=== PATIENT | male | born 1970 ===

== ENCOUNTER 2017-01-21 13:06 | Emergency (ER) | payer OTHER ==
--- NOTE | 2017-01-21 13:40 | C.PDOC ---
History Of Present Illness 46 yo male w/PMH of HTN ( not on medication currently), come infor vealution of retrosternal pain, back pain and Left elbow apin gradually developed 2 days ago after sustained mechanical fall at home. Pt reports, " slept on wet floor at home, fell down backwards, hit my left elbow and lower back". Pt reports, pain is reproducible, localized and worse with movement. Otherwise, pt denies obvious deformity, head injury, LOC, syncope, headache, dizziness, neck pain, SOB, dysphea, diaphoresis, palpitation, abd. pain, V/D, UTI sx, saddle anesthesia, incontinence, weakness, sensory or vascular deficits to B/L LEs. Ambulate to Ed for evaluation, not in any apparent distress. Time Seen by Provider: 01/21/17 13:30 Chief Complaint (Nursing): Chest Pain Past Medical History Vital Signs: Last Vital Signs Temp 98 F 01/21/17 13:20 Pulse 59 L 01/21/17 14:28 Resp 18 01/21/17 14:28 BP 178/92 H 01/21/17 13:20 Pulse Ox 98 01/21/17 14:28 - Medical History PMH: HTN Family History: States: Unknown Family Hx - Social History Hx Alcohol Use: Yes (former daily alcohol abuse) Hx Substance Use: No - Immunization History Hx Tetanus Toxoid Vaccination: No Hx Influenza Vaccination: No Hx Pneumococcal Vaccination: No Physical Exam - Physical Exam Appears: Well, Non-toxic, No Acute Distress Skin: Normal Color, Warm, No Ecchymosis Head: Atraumatic, Normacephalic Eye(s): bilateral: PERRL Ear(s): Bilateral: Normal Nose: Normal, No Discharge Oral Mucosa: Moist, No Drooling Tongue: Normal Appearing Lips: Normal Appearing Throat: Normal Neck: Normal ROM, Trachea Midline, No Midline Cervical Tenderness, No Paracervical Tenderness, No Step Off Deformity, Supple Chest: Symmetrical, No Deformity, Tenderness (mild tenderness midsternal and Right anterior chest wall overlying 3-5 intercostal spaces. NO palpable deformity.), No Ecchymosis, No Subcutaneous Emphysema Cardiovascular: Rhythm Regular Respiratory: No Decreased Breath Sounds, No Accessory Muscle Use, No Stridor, No Wheezing Gastrointestinal/Abdominal: Soft, No Tenderness, No Distention, No Guarding Back: No CVA Tenderness, No Vertebral Tenderness, Paraspinal Tenderness (mild lumbar paraspinal tenderness.) Extremity: Normal ROM, Tenderness (mildtenderness left olecranon. NO ecchymoses , FAROM, no neurovascular deficits.), No Deformity, No Swelling Neurological/Psych: Oriented x3, Normal Speech, Normal Motor, Normal Sensation, Normal Reflexes ED Course And Treatment ECG: Interpreted By Me, Viewed By Me ECG Rhythm: Sinus Bradycardia ECG Interpretation: Normal Interpretation Of ECG: SR@56/min, NAD, (-) acute T wave or ST-T changes. O2 Sat by Pulse Oximetry: 98 Pulse Ox Interpretation: Normal - Other Rad Left elbow X-Ray: Read By Radiologist Interpretation: mpression: Surgical pins with cerclage wire seen within the proximal humerus extending from the level of the olecranon to the proximal medullary cavity. No significant elbow joint effusion. Narrowing at the radial carpal joint space. Small punctate ossific density seen adjacent to the medial humeral condyle which may represent avulsion injury versus chronic change. Clinical correlation. If pain persists, consider MR Chest xray X-Ray: Read By Radiologist Interpretation: FINDINGS: LUNGS: No focal consolidation. Please note that chest x-ray has limited sensitivity for the detection of pulmonary masses. PLEURA: No significant pleural effusion identified. No definite pneumothorax . CARDIOVASCULAR: The cardiomediastinal silhouette appears within normal limits of size. OSSEOUS STRUCTURES: Postsurgical changes of the left shoulder. No acute osseous abnormality is detected. VISUALIZED UPPER ABDOMEN: Unremarkable. OTHER FINDINGS: None. IMPRESSION: No focal consolidation, significant pleural effusion, or definite pneumothorax identified. L-spine xray X-Ray: Read By Radiologist Interpretation: Findings: Few inferior endplate concavities at the L1 through L5 levels. Endplate sclerosis at the superior endplate of the L3 vertebral body level. Discogenic calcifications at the L1-2 level. No evidence of acute displaced fracture. Impression: Degenerative changes. If pain persists, consider MRI. Progress Note: On re-evaluation, pt is afebrile, hemodynamicaly stable. NOn- toxic. Ambulatory in ED with stable gait. PulseOx 98% RA. Head: AT/NC. Neck : (-) meningeal sign. Lungs: CTA B/L, BS equal B/L. CVS: (+)S1S2, reg. ABd: Benign. Back: (-) CVA tenderness. Neurologicaly intact. Imaging review and appears without acute abnoramlities. EKG- normal study. Case discussed with ED attending , imaging, EKG review, no further diagnostics recommend in set of this traumatic chest wall pain. Pt has clinical findings c/w chest wall strain , back and left elbow contusion. Noel wrap applied to Left elbow, sling. Pt advised. ref. to f/u with PMD, ortho in 2-3 days for re-eval. return ifa ny new changes. Disposition Counseled Patient/Family Regarding: Studies Performed, Diagnosis, Need For Followup, Rx Given - Disposition Referrals: [facility] [Outside] Gemma Martino MD [Staff Provider] - Disposition: HOME/ ROUTINE Disposition Time: 14:02 Condition: STABLE Additional Instructions: Noel wrap to Left elbow for 1 week Avoid strenuous physical activity fir 1 week Take pain medication as need for pain Follow up with PMD In 2-3 days for re-evaluation. Return to ED if any worsening or new changes. Prescriptions: Methocarbamol [Robaxin] 500 mg PO TID #14 tab traMADol [Ultram] 50 mg PO TID #7 tab Instructions: Back Pain (ED), Muscle Spasm (ED), Elbow Sprain (ED), Chest Wall Pain (ED) Print Language: UKRAINIAN - Clinical Impression Clinical Impression: Chest wall pain, Back strain, Elbow contusion
--- NOTE | 2017-01-21 13:46 | RAD ---
HISTORY: Cough COMPARISON: None available TECHNIQUE: Chest PA and lateral FINDINGS: LUNGS: No focal consolidation. Please note that chest x-ray has limited sensitivity for the detection of pulmonary masses. PLEURA: No significant pleural effusion identified. No definite pneumothorax . CARDIOVASCULAR: The cardiomediastinal silhouette appears within normal limits of size. OSSEOUS STRUCTURES: Postsurgical changes of the left shoulder. No acute osseous abnormality is detected. VISUALIZED UPPER ABDOMEN: Unremarkable. OTHER FINDINGS: None. IMPRESSION: No focal consolidation, significant pleural effusion, or definite pneumothorax identified.
--- NOTE | 2017-01-21 14:10 | RAD ---
Left elbow three views History: Injury. Comparison: None available. Findings: Surgical pins with cerclage wire seen within the proximal humerus extending from the level of the olecranon to the proximal medullary cavity. No significant elbow joint effusion. Narrowing at the radial carpal joint space. Small punctate ossific density seen adjacent to the medial humeral condyle which may represent avulsion injury versus chronic change. Clinical correlation. Impression: Surgical pins with cerclage wire seen within the proximal humerus extending from the level of the olecranon to the proximal medullary cavity. No significant elbow joint effusion. Narrowing at the radial carpal joint space. Small punctate ossific density seen adjacent to the medial humeral condyle which may represent avulsion injury versus chronic change. Clinical correlation. If pain persists, consider MRI.
[2017-01-21 14:28] VITALS: RESP 18
[2017-01-21 14:46] VITALS: BP 154/92; TEMP 98.2
[2017-01-21 14:50] VITALS: O2SAT 98
--- NOTE | 2017-01-21 15:20 | RAD ---
Lumbar spine three views History: Injury. Comparison: None available. Findings: Few inferior endplate concavities at the L1 through L5 levels. Endplate sclerosis at the superior endplate of the L3 vertebral body level. Discogenic calcifications at the L1-2 level. No evidence of acute displaced fracture. Impression: Degenerative changes. If pain persists, consider MRI.
[2017-01-21 15:41] VITALS: PULSE 59
--- NOTE | 2017-01-23 12:06 | CARD ---
APPROVED REPORT EKG Measurement Heart [id number] [id number] <Conclusion> Sinus bradycardia Otherwise normal ECG
== END 2017-01-21 15:42 | disposition home or self-care (01) ==
LOC: C.ER 13:06
DX: S39.012A Strain of muscle, fascia and tendon of lower back, initial encounter (principal); S50.02XA Contusion of left elbow, initial encounter; R07.89 Other chest pain; W01.0XXA Fall on same level from slipping, tripping and stumbling without subsequent striking against object, initial encounter; Y93.89 Activity, other specified; Y92.009 Unspecified place in unspecified non-institutional (private) residence as the place of occurrence of the external cause

== ENCOUNTER 2017-02-11 14:40 | Emergency (ER) | payer OTHER ==
[2017-02-11 15:18] VITALS: TEMP 98.2
--- NOTE | 2017-02-11 16:21 | RAD ---
PROCEDURE: Left Foot Radiographs. HISTORY: foot pain COMPARISON: None. FINDINGS: BONES: Normal. No fracture. JOINTS: Normal. SOFT TISSUES: Normal. OTHER FINDINGS: None. IMPRESSION: Normal left foot radiographs.
--- NOTE | 2017-02-11 16:32 | C.PDOC ---
History Of Present Illness 46 year old male presents to the emergency room with complaints of left elbow pain, left foot pain, and back pain for the last 3 weeks. These symptoms began when patient had a mechanical fall and was seen at [facility] ED that day. Patient reports that the left elbow pain is persistent. Patient states bilateral lower back pain is worse on the left. Patient hasn't been using medications since discharge. Patient notes that he did not follow up since he does not have insurance. Patient describes the pain as a sensation of constant dull pressure with an occasional sharp shooting sensation that is non-radiating. Patient denies any numbness, weakness, any sensory changes, any urinary symptoms, or any other complaints. Time Seen by Provider: 02/11/17 15:27 Chief Complaint (Nursing): Back Pain History Per: Patient History/Exam Limitations: no limitations Onset/Duration Of Symptoms: Persistent, Other (3 weeks) Current Symptoms Are (Timing): Still Present Quality Of Discomfort: Sharp, Dull, Pressure, "Pain" Severity: Mild Previous Symptoms: Back Pain Associated Symptoms: denies: Incontinence, New Weakness, New Numbness Recent travel outside of the [place]: No Past Medical History Reviewed: Historical Data, Nursing Documentation, Vital Signs Vital Signs: Last Vital Signs Temp 98.2 F 02/11/17 15:13 Pulse 73 02/11/17 15:13 Resp 20 02/11/17 15:13 BP 153/93 H 02/11/17 15:13 Pulse Ox 99 02/11/17 16:38 - Medical History PMH: HTN, Chronic Kidney Disease Family History: States: Unknown Family Hx - Social History Hx Alcohol Use: Yes Hx Substance Use: No - Immunization History Hx Tetanus Toxoid Vaccination: No Hx Influenza Vaccination: No Hx Pneumococcal Vaccination: No Review Of Systems Except As Marked, All Systems Reviewed And Found Negative. Constitutional: Negative for: Fever, Chills Gastrointestinal: Negative for: Nausea, Vomiting, Diarrhea Genitourinary: Negative for: Dysuria, Frequency, Incontinence, Hematuria Musculoskeletal: Positive for: Back Pain, Foot Pain (Left foot pain), Other ( Left elbow pain) Neurological: Negative for: Weakness, Numbness Physical Exam - Physical Exam Additional Physical Exam Comments: Constitutional: No acute distress. Head: Normocephalic. Atraumatic. Eyes: PERRL. ENT: Moist mucous membranes. Neck: Supple. Cardiovascular: Regular rate. Radial pulse 2+ bilaterally. Chest: No tenderness. Respiratory: Clear to auscultation bilaterally. GI: Soft. Nontender. Nondistended. Back: Tenderness over lumbar area on L. Musculoskeletal: Decreased ROM and tenderness along the olecranon process and ulnar side of the elbow. Difficulty with left foot dorsiflexion on all 5 toes. Skin: No rash. Neurologic: Alert, no focal deficit. ED Course And Treatment O2 Sat by Pulse Oximetry: 99 Medical Decision Making Medical Decision Making: Patient states he attempted to call the Orthopedist environmental health physician at his last discharge, but an appointment would be $300. I informed him that he must first apply for [facility] and then can go to clinic on a day when orthopedist is there. Foot XR negative for fx. Fingerstick negative. Disposition - Disposition Referrals: [facility] [Outside] Disposition: HOME/ ROUTINE Disposition Time: 18:18 Condition: STABLE Instructions: Sprain (ED), Back Pain (ED) - Clinical Impression Clinical Impression: Elbow contusion, Low back pain - Scribe Statement The provider has reviewed the documentation as recorded by the Scribe Connor Mitchell All medical record entries made by the Scribe were at my direction and personally dictated by me. I have reviewed the chart and agree that the record accurately reflects my personal performance of the history, physical exam, medical decision making, and the department course for this patient. I have also personally directed, reviewed, and agree with the discharge instructions and disposition.
[2017-02-11 17:37] LABS: RBC URINE 1 /hpf (0-3); URINE BILIRUBIN 1+ (NEGATIVE); URINE BLOOD NEGATIVE (NEGATIVE); URINE GLUCOSE (UA) 1+ mg/dL (Normal); URINE KETONE TRACE mg/dL (NEGATIVE); URINE LEUKOCYTE ESTERASE NEG Leu/uL (Negative); URINE PROTEIN 2+ mg/dL (NEGATIVE); WBC URINE 4 /hpf (0-5)
[2017-02-11 17:48] LABS: URINE COLOR YELLOW (YELLOW)
[2017-02-11 18:43] VITALS: BP 149/76; PULSE 57; RESP 18; O2SAT 95
== END 2017-02-11 18:43 | disposition home or self-care (01) ==
LOC: C.ER 14:40
DX: S50.02XD Contusion of left elbow, subsequent encounter (principal); W19.XXXD Unspecified fall, subsequent encounter; M54.5 Low back pain
CPT/HCPCS: 73630; 81001; 82948; 96372; 99284; J1885